=== PATIENT | male | born 1965 | race Caucasian/White ===

== ENCOUNTER → 2017-05-03 | Outpatient (CLI) | payer BC ==
--- NOTE | 2017-05-03 16:03 | PCVCIMAG ---
APPROVED REPORT Study performed: 05/03/2017 14:49:03 EXAM: Comprehensive 2D, Doppler, and color-flow Echocardiogram Patient Location: Echo lab Status: routine BSA: 2.00 HR: 98 bpmBP: 124/78 mmHg Rhythm: NSR Other Information Study Quality: Adequate Indications Congestive Heart Failure Cardiomyopathy 2D Dimensions IVSd: 13.34 (7-11mm)LVOT Diam: 22.04 (18-24mm) LVDd: 58.38 mm PWd: 7.83 (7-11mm)Ascending Ao: 31.66 (22-36mm) LVDs: 52.42 (25-40mm) Left Atrium: 36.68 (27-40mm) Aortic Root: 28.57 mm LV Single Plane 4CH: 38.11 % LV Single Plane 2CH: 32.33 %Pelletier's LVEF: 35.22 % Biplane EF: 35.6 % Tricuspid Valve TV Vmax: 0.73 m/s Left Ventricle Left ventricle is mildly dilated. Mild septal hypertrophy. Left ventricular systolic function is moderately decreased. Left ventricular systolic function is moderate to severely decreased. LVEF is 30-35%. Atria The left atrium size is normal. The right atrium size is normal. Aortic Valve The aortic valve is normal in structure. No aortic regurgitation is present. There is no aortic valvular stenosis. Mitral Valve The mitral valve is normal in structure. There is no mitral valve regurgitation noted. No evidence of mitral valve stenosis. Tricuspid Valve The tricuspid valve is normal in structure. There is no tricuspid valve regurgitation noted. Pulmonic Valve The pulmonary valve is normal in structure. There is no pulmonic valvular regurgitation. Great Vessels The aortic root is normal in size. The ascending aorta is normal in size. IVC is normal in size and collapses >50% with inspiration. Pericardium There is no pericardial effusion. There is no pleural effusion. <Conclusion> Left ventricular systolic function is moderately decreased. LVEF is 30-35%. The aortic valve is normal in structure. No aortic regurgitation or stenosis The mitral valve is normal in structure. No mitral valve regurgitation noted. Pulmonary artery pressure could not be reliably ascertained There is no pericardial effusion.
== END | disposition home or self-care (01) ==
LOC: PCVCIMAG 14:33
PROVIDERS: ATTEND Internal Medicine
DX: I11.0 Hypertensive heart disease with heart failure (principal); I50.22 Chronic systolic (congestive) heart failure; I42.9 Cardiomyopathy, unspecified; E78.5 Hyperlipidemia, unspecified; F17.200 Nicotine dependence, unspecified, uncomplicated; Z88.8 Allergy status to other drugs, medicaments and biological substances
CPT/HCPCS: 36415; 80061; 93005; 93308; G0463

== ENCOUNTER → 2017-06-04 | Outpatient (CLI) | payer MEDICARE, BC ==
[~2017-06-04] MED LIST: DIAZEPAM 10 MG TABLET. ONE; IOHEXOL 350 MG/ML 100 ML VIAL. ONE; IOHEXOL 350 MG/ML 50 ML VIAL. ONE; IV NORMAL SALINE 1000ML BAG 1,000 ML ONE; LIDOCAINE 1% Multi-Dose 20 ML VIAL. ONE; MIDAZOLAM HCL/PF 2 MG/2 ML VIAL. ONE; fentaNYL PF VIAL 100 MCG/2 ML VIAL ONE
--- NOTE | 2017-06-04 17:18 | PCVCINTER ---
APPROVED REPORT Patient Details Patient Status: Out-Patient Room #: 3 The patient is a 51 year-old Male Event Personnel Karley Bertrand MD, Ravi Schreiber RN, Shakira Howell RT(R)(), Eyal Centeno RN Indication Heart failure, Cardiomyopathy Risk Factors Arterial HypertensionDysplipidemia (Type: 0), Last Creatanine 0.8Tobacco History (Current/Recent(w/in 1 year)) Previous Procedures/Diagnoses Previous CHF, CHF, Hypertension Procedure Narrative The patient was brought electively to the Cardiac Catheterization Laboratory and was prepped and draped in a sterile manner. The right femoral was infiltrated with 1% Lidocaine subcutaneous anesthesia. A 6 fr sheath was inserted into the right femoral artery. Coronary angiography was performed using coronary diagnostic catheters. The right coronary system was accessed and visualized with a JR4 Diagnostic catheter. The left coronary system was accessed and visualized with a JL4 Diagnostic catheter. The left ventricle was accessed and visualized with a Angled Pigtial Diagnostic catheter. Left ventriculogram was performed in CR projection. Closure device was deployed with a 6 Fr Mynx. Hemostasis was obtained with manual pressure following sheath removal without any complications. The patient tolerated the procedure well and there were no complications associated with the procedure. There was no hematoma. Coronary Angiography The patient's coronary anatomy is right dominant. Diagnostic Cath Left MainNormal LADNormal Diagonal 1Moderate in size, angiographically normal Diagonal 2Large, bifurcating and normal CircumflexSmall, nondominant and comprised of a very small proximal marginal branch Right CoronaryLarge, anatomically dominant, and normal throughout its course R PDALarge posterior descending branch, angiographically normal RPLVLarge posterior lateral branch, angiographically normal Left Ventriculography The left ventricle is mild to moderately dilated in size with abnormal contractility. The left ventricular ejection fraction is estimated to be 30-35%. Left ventricular wall motion abnormalities are not present. There is no mitral insufficiency. Hemodynamics The aortic pressure is 127/76 mmHg with a mean of 97 mmHg. The left ventricular pressure is 128/2 mmHg with a mean of 10 mmHg. Conclusion 1. Dilated left ventricle. EF 30-35%. No mitral insufficiency 2. Normal coronary vasculature. Right heart dominant Recommendations Aggressive Medical Therapy
== END | disposition home or self-care (01) ==
LOC: PCVCINTER 10:42
PROVIDERS: ATTEND Internal Medicine
DX: I11.0 Hypertensive heart disease with heart failure (principal); I50.9 Heart failure, unspecified
CPT/HCPCS: 93458; 99152; C1760; C1769; C1894; J1644; J2250; J3010; J7030; Q9967

== ENCOUNTER → 2017-08-07 | Outpatient (CLI) | payer BC, MEDICARE ==
--- NOTE | 2017-08-07 15:46 | PCVCIMAG ---
APPROVED REPORT Study performed: 08/07/2017 14:38:39 EXAM: Comprehensive 2D, Doppler, and color-flow Echocardiogram Patient Location: Echo lab Room #: 3Status: routine BSA: 2.02 HR: 103 bpmBP: 142/84 mmHg Rhythm: Tachycardia Other Information Study Quality: Adequate Indications Cardiomyopathy Hypertension/HDD SYSTOLIC HEART FAILURE 2D Dimensions LVEF(%): 27.05 (>50%) IVSd: 9.26 (7-11mm)LVOT Diam: 23.84 (18-24mm) LVDd: 45.40 mm PWd: 9.78 (7-11mm)Ascending Ao: 32.42 (22-36mm) LVDs: 39.72 (25-40mm) Left Atrium: 34.02 (27-40mm) Aortic Root: 26.06 mm LV Single Plane 4CH: 47.02 % LV Single Plane 2CH: 50.54 %Pelletier's LVEF: 48.78 % Biplane EF: 49.1 % Volumes Left Atrial Volume (Systole) Single Plane 4CH: 37.23 mLSingle Plane 2CH: 23.89 mL Biplane LA Volume: 39.00 mLLA ESV Index: 19.00 mL/m2 Aortic Valve AoV Peak Christopher.: 1.15 m/s AO Peak Gr.: 5.32 mmHgLVOT Max P.73 mmHg LVOT Max V: 0.97 m/s KURTIS Vmax: 3.74 cm2 Mitral Valve E/A Ratio: 0.3 MV Decel. Time: 12.92 ms MV E Max Christopher.: 0.30 m/s MV A Christopher.: 0.89 m/s MV PHT: 3.75 ms IVRT: 66.90 ms TDI E/Lateral E': 4.29E/Medial E': 10.00 Medial E' Christopher.: 0.03 m/s Lateral E' Christopher.: 0.07 m/s Pulmonary Valve PV Peak Christopher.: 0.92 m/sPV Peak Gr.: 3.41 mmHg Pulmonary Vein P Vein S: 0.73 m/sP Vein A: 0.31 m/s P Vein D: 0.45 m/sP Vein A Dur.: 101.5 msec P Vein S/D Ratio: 1.62 Tricuspid Valve TV Vmax: 0.39 m/s Left Ventricle The left ventricle is normal size. There is normal LV segmental wall motion. There is normal left ventricular wall thickness. Left ventricular systolic function is mildly decreased globally. LVEF is 50%. Transmitral Doppler flow pattern suggests impaired LV relaxation. Right Ventricle The right ventricle is normal size. The right ventricular systolic function is normal. Atria The left atrium size is normal. The right atrium size is normal. Aortic Valve The aortic valve is normal in structure. No aortic regurgitation is present. There is no aortic valvular stenosis. Mitral Valve The mitral valve is normal in structure. Trace to mild mitral regurgitation. No evidence of mitral valve stenosis. Tricuspid Valve The tricuspid valve is normal in structure. Trace tricuspid regurgitation. Pulmonic Valve The pulmonary valve is normal in structure. There is no pulmonic valvular regurgitation. Great Vessels The aortic root is normal in size. The ascending aorta is normal in size. IVC is normal in size and collapses with >50% inspiration Pericardium There is no pericardial effusion. There is no pleural effusion. <Conclusion> Left ventricular systolic function is mildly decreased globally. There is normal LV segmental wall motion. LVEF 50%. The aortic valve is normal in structure. No aortic valvular stenosis or insuffficiency. The mitral valve is normal in structure. Mild mitral regurgitation. Pulmonary artery pressure could not be reliably ascertained There is no pericardial effusion.
== END | disposition home or self-care (01) ==
LOC: PCVCIMAG 13:35
PROVIDERS: ATTEND Internal Medicine
DX: I11.0 Hypertensive heart disease with heart failure (principal); I50.32 Chronic diastolic (congestive) heart failure; I43 Cardiomyopathy in diseases classified elsewhere; E78.5 Hyperlipidemia, unspecified; F17.210 Nicotine dependence, cigarettes, uncomplicated; Z79.899 Other long term (current) drug therapy
CPT/HCPCS: 93005; 93306; G0463

== ENCOUNTER → 2018-03-15 | Outpatient (CLI) | payer MEDICARE, BC | END | disposition home or self-care (01) | LOC: PCVCCLINIC 15:09 | DX: I11.0 Hypertensive heart disease with heart failure (principal); I50.32 Chronic diastolic (congestive) heart failure; E78.5 Hyperlipidemia, unspecified; I43 Cardiomyopathy in diseases classified elsewhere; F17.210 Nicotine dependence, cigarettes, uncomplicated; Z88.8 Allergy status to other drugs, medicaments and biological substances; Z79.899 Other long term (current) drug therapy | CPT/HCPCS: 80061; 93005; G0463 ==

== ENCOUNTER → 2019-03-18 | Outpatient (CLI) | payer OTHER, BC | END | disposition home or self-care (01) | LOC: PCVCCLINIC 16:00 | PROVIDERS: ATTEND Internal Medicine | DX: I11.0 Hypertensive heart disease with heart failure (principal); I50.32 Chronic diastolic (congestive) heart failure; I42.0 Dilated cardiomyopathy; E78.5 Hyperlipidemia, unspecified; F17.200 Nicotine dependence, unspecified, uncomplicated; Z88.8 Allergy status to other drugs, medicaments and biological substances; Z79.899 Other long term (current) drug therapy | CPT/HCPCS: 36415; 80061; 93005; G0463 ==